=== PATIENT | female | born 1980 | race Caucasian/White ===

== ENCOUNTER 2022-07-26 19:17 | Inpatient (IN) | payer OTHER ==
[2022-07-26 22:10] VITALS: BMI 23.6
[2022-07-26] MEDS ORDERED: BISMUTH SUBSALICYLATE 524 MG/30 ML PO PRN (22:58)
[2022-07-26] MEDS ORDERED: IBUPROFEN 600 MG TABLET (FP) PO PRN (22:58)
[2022-07-26] MEDS ORDERED: LOPERAMIDE HCL 2 MG CAPSULE PO PRN (22:58)
[2022-07-26] MEDS ORDERED: P-EPHED 60MG/TRIPROLIDI 2.5MG TABLET PO PRN (22:58)
[2022-07-26] MEDS ORDERED: POLYETHYLENE GLYCOL (HEALTHYLAX) 3350 17 GM PACKET PO PRN (22:58)
[2022-07-26] MEDS ORDERED: MELATONIN 5 MG TABLETS PO PRN (22:58)
[2022-07-26] MEDS ORDERED: DICYCLOMINE HCL 10 MG CAPSULE PO PRN (22:58)
[2022-07-26] MEDS ORDERED: BENZOCAINE/MENTHOL (CHLORASEPTIC ) LOZENGE MM PRN (22:58)
[2022-07-26] MEDS ORDERED: hydrOXYzine PAMOATE 25 MG CAPSULE (FP) PO PRN (22:58)
[2022-07-26] MEDS ORDERED: METHOCARBAMOL 500 MG TABLET PO PRN (22:58)
[2022-07-26] MEDS ORDERED: ONDANSETRON *ODT* 4 MG TABLET SL PRN (22:58)
[2022-07-26] MEDS ORDERED: guaiFENesin 200 MG/10 ML 10 ML UNIT-DOSE CUPS PO PRN (22:58)
[2022-07-26] MEDS ORDERED: MAG HYDROX/AL HYDROX/SIMETH 30 ML UNIT-DOSE CUP PO PRN (22:58)
[2022-07-26] MEDS ORDERED: ACETAMINOPHEN 325 MG TABLET (FP) PO PRN ×2 (22:58)
[2022-07-26] MEDS ORDERED: MAGNESIUM HYDROX 2400MG/30ML ORAL SUSPENSION 30 ML CUP PO PRN (22:58)
[2022-07-26] MEDS ORDERED: IBUPROFEN 400 MG TABLET (FP) PO PRN (22:58)
[2022-07-27] MEDS ORDERED: TUBERCULIN PPD 5 TU/0.1ML VIAL ID ONE (02:31)
[2022-07-27] MEDS: diazePAM 5 MG TABLET PO SCH ×2 (03:00→06:23)
[2022-07-27] MEDS: PRENATAL VITAMINS W/ FOLIC ACID TABLET (FP) PO SCH (11:32)
[2022-07-27] MEDS: diazePAM 5 MG TABLET PO PRN ×3 (11:33→22:06)
[2022-07-27] MEDS ORDERED: diazePAM 5 MG TABLET ONE (11:34)
[2022-07-27] MEDS ORDERED: hydrOXYzine PAMOATE 25 MG CAPSULE (FP) PO ONE (12:19)
[2022-07-27 12:51] LABS: HEMATOCRIT 38.3 % (32.4-45.2); HEMOGLOBIN 12.4 GM/dL (10.7-15.3); MCHC 32.4 g/dl (32.0-36.0); MEAN CELL VOLUME 92.5 fl (80-96); MEAN PLT VOLUME 9.3 fl (7.5-11.1); PLATELET COUNT 260 10^3/uL (134-434); RBC 4.14 M/mm3 (3.60-5.2); RDW 16.2 % (11.6-15.6); WHITE BLOOD COUNT 6.7 K/mm3 (4.0-10.0)
[2022-07-27 14:03] LABS: CALCIUM 8.8 mg/dL (8.5-10.1)
[2022-07-27 14:04] LABS: ALBUMIN 3.7 g/dl (3.4-5.0); BLOOD UREA NITROGEN 15.1 mg/dL (7-18)
[2022-07-27 14:07] LABS: CREATININE 0.7 mg/dL (0.55-1.3); TOT PROT 7.1 g/dl (6.4-8.2)
[2022-07-27 14:09] LABS: BILIRUBIN,TOTAL 0.5 mg/dL (0.2-1)
[2022-07-27] MEDS ORDERED: THIAMINE HCL 100 MG TABLET (FP) PO SCH (22:00)
[2022-07-28] MEDS ORDERED: diazePAM 5 MG TABLET PO SCH (06:00)
[2022-07-28 09:38] VITALS: BP 128/84; PULSE 81; RESP 18; TEMP 96.8
[2022-07-28] MEDS: PRENATAL VITAMINS W/ FOLIC ACID TABLET (FP) PO SCH (10:43)
[2022-07-29] MEDS ORDERED: diazePAM 5 MG TABLET PO SCH (06:00)
[2022-07-30] MEDS ORDERED: diazePAM 5 MG TABLET PO ONE (06:00)
== END 2022-07-28 10:15 | disposition home or self-care (01) | DRG 775 ==
LOC: YASAS 19:17 → Y6N 07-27 12:08
PROVIDERS: ADMIT Allergy & Immunology; ATTEND Family Medicine
PROC: HZ2ZZZZ Detoxification Services for Substance Abuse Treatment (ICD-10-PCS; principal; 2022-07-27)
DX: F10.230 Alcohol dependence with withdrawal, uncomplicated (principal); F31.9 Bipolar disorder, unspecified; F41.9 Anxiety disorder, unspecified; G35 Multiple sclerosis; Z87.891 Personal history of nicotine dependence; Z88.8 Allergy status to other drugs, medicaments and biological substances
CPT/HCPCS: 36415; 80053; 81025; 85027; 86780; C9803-CS; U0003; U0005